=== PATIENT | female | born 1995 | race Two or more races ===

== ENCOUNTER 2017-01-12 10:16 | Emergency (ER) | payer SELFPAY ==
[~2017-01-12] VITALS: Ht 160 cm; Wt 113.4 kg
--- NOTE | 2017-01-12 10:20 | NUR ---
PT CAME IN FOR C/O RAPID HEART RATE, WAS SEEN BY SCHOOL NURSE AND WAS ADVISED TO GO TO ER. PER PT REPORT, SHE HAS BEEN FEELING WEAK AND TIRED LATELY. SEEN BY MD FOR EVAL. SAFETY AND COMFORT MEASURES PROVIDED. WILL MONITOR.
[2017-01-12] MEDS ORDERED: IV NS 0.9% 1,000 ML BAG IV ONE ×2 (10:30→11:30)
[2017-01-12 10:37] LABS: APPEARANCE,URINE Turbid (CLEAR); BILIRUBIN,URINE LARGE (NEGATIVE); BLOOD, URINE Negative Ery/uL (NEGATIVE); COLOR,URINE Amber (YELLOW); KETONES,URINE 15 (NEGATIVE); LEUKOCYTE ESTERASE ,URINE Small (NEGATIVE); NITRITE, URINE Positive (NEGATIVE); PH,URINE 5.5 (5.0-8.0); PROTEIN,URINE 100 mg/dl (NEGATIVE); UGLUCOSE Negative (NEGATIVE)
[2017-01-12] MEDS ORDERED: IV NS 0.9% 1,000 ML ONE ×2 (10:40→11:20)
[2017-01-12] MEDS ORDERED: IV SET PRIMARY 1 EA INFUS.SET MC ONE (10:40)
--- NOTE | 2017-01-12 10:40 | NUR ---
NEW IV STARTED, LEFT AC, 20 GAUGE. BLOOD DRAWN, SENT TO LAB FOR TESTING.
[2017-01-12 10:42] LABS: BASOPHILS % (AUTO) 0.2 % (0.0-2.0); EOSINOPHILS % (AUTO) 0.5 % (0.0-6.0); HEMATOCRIT 39 % (33-45); HEMOGLOBIN 13.1 g/dL (11.5-14.8); LYMPHOCYTES # (AUTO) 4.4 /CMM (0.8-4.8); LYMPHOCYTES % (AUTO) 46.5 % (20.0-44.0); MEAN CORPUSCULAR HEMOGLOBIN 30 PG (26.0-33.0); MEAN CORPUSCULAR HGB CONC 34 g/dl (31.0-36.0); MEAN CORPUSCULAR VOLUME 89 fL (82-100); MONOCYTES # (AUTO) 1.1 /CMM (0.1-1.30); MONOCYTES % (AUTO) 11.1 % (2.0-12.0); NEUTROPHILS % (AUTO) 41.7 % (43.0-81.0); PLATELET COUNT (AUTO) 130 /CMM (150-450); RDW COEFFICIENT OF VARIATION 11.9 (11.5-15.0); RED BLOOD CELL COUNT(AUTO) 4.35 MIL/uL (4.0-5.2); WHITE BLOOD COUNT (AUTO) 9.5 K/uL (4.3-11.0)
[2017-01-12 10:49] LABS: BACTERIA,URINE Rare /HPF (None Seen); MUCUS,URINE Few /LPF (None Seen); RBC,URINE 0-3 /HPF (0-2); SQUAMOUS EPITHELIAL CELL,UR Few /HPF (None Seen)
[2017-01-12 10:56] LABS: CALCIUM, SERUM 8.6 mg/dL (8.5-10.1); CREATININE 1.1 mg/dL (0.6-1.3)
[2017-01-12] MEDS ORDERED: ACETAMINOPHEN ES 500 MG TABLET ONE (10:56)
[2017-01-12] MEDS ORDERED: ACETAMINOPHEN ES 500 MG TABLET PO ONE (11:00)
[2017-01-12 11:10] LABS: THYROID STIMULATING HORMONE 2.413 uIU/mL (0.358-3.74)
[2017-01-12] MEDS ORDERED: CEFTRIAXONE 1GM BAG (ER ONLY) 50 ML IV ONE (11:20)
[2017-01-12] MEDS ORDERED: IV SET PRIMARY PUMP SET 1 EA INFUS.SET MC ONE (11:21)
[2017-01-12] MEDS ORDERED: CEFTRIAXONE 1GM BAG (ER ONLY) 1 GM/50 ML PIGGYBACK IV ONE (11:30)
[2017-01-12] MEDS ORDERED: IV NS 0.9% 250 ML IV ONE (11:49)
[2017-01-12] MEDS ORDERED: IOHEXOL-350 100 ML VIAL IV ONE (11:49)
[2017-01-12] MEDS ORDERED: CT SWABBABLE VALVE TRANS SET 1 EA INFUS.SET MC ONE (11:49)
--- NOTE | 2017-01-12 11:50 | NUR ---
PT TAKEN TO CT.
[2017-01-12 12:32] LABS: INR 0.98 (0.87-1.13); PROTHROMBIN TIME 10.5 SECS (9.5-12.7)
--- NOTE | 2017-01-12 12:45 | NUR ---
IV removed. Catheter intact and site benign. Pressure and 4x4 applied to site. No bleeding noted.
--- NOTE | 2017-01-12 13:00 | NUR ---
Patient discharged to home in stable condition. Written and verbal after care instructions given. Patient verbalizes understanding of instruction.
[2017-01-12 13:05] VITALS: BP 125/98
== END 2017-01-12 13:07 | disposition home or self-care (01) ==
LOC: ER 10:18
DX: N39.0 Urinary tract infection, site not specified (principal); R00.2 Palpitations; E86.0 Dehydration; R61 Generalized hyperhidrosis
CPT/HCPCS: 36415; 71010-TC; 80048-TC; 80305; 81000-TC; 84439-TC; 84443-TC; 84703-TC; 85025-TC; 85378-TC; 85730-TC; A4606; J0696; J7030; J7050; Q9967; Z7610